=== PATIENT | female | born 2000 | race American Indian/Alaskan Native ===

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

== ENCOUNTER 2020-09-30 02:25 | Emergency (ER) | payer SELFPAY | END 2020-09-30 07:00 | disposition left against medical advice (07) | LOC: ED 02:25 | DX: R06.02 Shortness of breath (principal); Z53.21 Procedure and treatment not carried out due to patient leaving prior to being seen by health care provider ==